=== PATIENT | male | born 1935 | race Hispanic/Latino ===

== ENCOUNTER 2017-05-11 16:46 | Inpatient (IN) | payer MEDICARE ==
[~2017-05-11] VITALS: Ht 175.3 cm; Wt 89.3 kg
[2017-05-11] MEDS ORDERED: LIDOCAINE HCL-MPF 1% 2ML VIAL IVP PRN (18:15)
[2017-05-11] MEDS ORDERED: POTASSIUM CHLORIDE 20MEQ/100ML 100 ML IV PRN (18:15)
[2017-05-11] MEDS ORDERED: POTASSIUM CHLORIDE 10% ELIXIR 20 MEQ/15 ML UDCUP PO PRN (18:15)
[2017-05-11 18:56] LABS: HEMATOCRIT 32.1 % (42-54); MEAN CORPUSCULAR HEMOGLOBIN 30.1 pg (27.0-33.0); MEAN CORPUSCULAR HGB CONC 33.3 g/dL (32.0-36.0); MEAN CORPUSCULAR VOLUME 90.5 fL (79-99); NUCLEATED RED BLOOD CELLS 0.1 % (0.0-0.19); PLATELET COUNT (AUTO) 210 K/uL (130-400); RED BLOOD CELL COUNT(AUTO) 3.55 MIL/uL (4.50-6.20); RED CELL DISTRIBUTION WIDTH 14.1 % (11.0-15.5)
[2017-05-11 19:05] VITALS: BP 156/58
[2017-05-11 19:17] LABS: MAGNESIUM 1.5 mg/dL (1.80-2.40); THYROID STIMULATING HORMONE 0.2 uIU/mL (0.36-3.74)
[2017-05-11 19:22] LABS: B-TYPE NATRIURETIC PEPTIDE 994 pg/mL (0-100)
[2017-05-11] MEDS: FUROSEMIDE 10 MG/ML 4ML VIAL IV SCH (19:27)
[2017-05-11 19:42] LABS: BASOPHILS % (MANUAL) 1 % (0-2); LYMPHOCYTES % (MANUAL) 17 % (22-44); MONOCYTES % (MANUAL) 6 % (2-9); PLATELET MORPHOLOGY COMMENT ADEQUATE; REACTIVE LYMPHOCYTES 3 % (0-0); SEGMENTED NEUTROPHILS % 73 % (40-70)
[2017-05-11 20:07] LABS: ALBUMIN 3.2 g/dL (3.5-5.0); BILIRUBIN,TOTAL 1.4 mg/dL (0.2-1.0); CREATININE 1.2 mg/dL (0.5-1.5); MAGNESIUM 1.5 mg/dL (1.80-2.40); POTASSIUM 3.1 mmol/L (3.5-5.1); THYROID STIMULATING HORMONE 0.21 uIU/mL (0.36-3.74); TOTAL PROTEIN, SERUM 6.8 g/dL (6.0-8.3)
[2017-05-11] MEDS: POTASSIUM CHLORIDE 20 MEQ ERTAB PO PRN ×2 (20:31→22:19)
[2017-05-11] MEDS ORDERED: MAGNESIUM 2GM PREMIX 50ML 50 ML IV SCH (21:45)
[2017-05-11] MEDS: NITROGLYCERIN 1GM/1 INCH PACKET TD SCH (22:19)
[2017-05-11] MEDS: GUAIFENESIN-DM 200/20 MG 10 ML PO PRN (22:20)
[2017-05-11 23:39] VITALS: BP 153/54
[2017-05-11 23:43] LABS: CREATINE KINASE MB < 0.5 ng/mL (0.5-3.6); CREATINE KINASE, TOTAL 80 U/L (21-232); MYOGLOBIN 88 ng/mL (10-92); TROPONIN I < 0.04 ng/mL (0.00-0.06)
[2017-05-12] MEDS: POTASSIUM CHLORIDE 20 MEQ ERTAB PO PRN ×5 (00:36→11:07)
[2017-05-12] MEDS ORDERED: AMIO200T2 PO (02:03)
[2017-05-12] MEDS ORDERED: FURO20TA4 PO (02:03)
[2017-05-12] MEDS ORDERED: ROSU10TA35 PO (02:03)
[2017-05-12] MEDS ORDERED: TAMS0.4C32 PO (02:03)
[2017-05-12] MEDS ORDERED: LOSA25TA21 PO (02:03)
[2017-05-12] MEDS ORDERED: METO50TA9 PO (02:03)
[2017-05-12] MEDS ORDERED: ISOS30TA6 PO (02:04)
[2017-05-12 03:45] LABS: HEMATOCRIT 32.3 % (42-54); MEAN CORPUSCULAR HEMOGLOBIN 30.9 pg (27.0-33.0); MEAN CORPUSCULAR HGB CONC 34.3 g/dL (32.0-36.0); MEAN CORPUSCULAR VOLUME 90.3 fL (79-99); PLATELET COUNT (AUTO) 184 K/uL (130-400); RED BLOOD CELL COUNT(AUTO) 3.58 MIL/uL (4.50-6.20); RED CELL DISTRIBUTION WIDTH 14.7 % (11.0-15.5); WHITE BLOOD COUNT (AUTO) 5.6 K/uL (4.8-10.8)
[2017-05-12 03:50] VITALS: BP 140/64
[2017-05-12 04:35] LABS: CARBON DIOXIDE 31 mmol/L (21-32); CHLORIDE 105 mmol/L (101-111); CREATINE KINASE MB 0.7 ng/mL (0.5-3.6); CREATINE KINASE, TOTAL 81 U/L (21-232); CREATININE 1.2 mg/dL (0.5-1.5); GLOMERULAR FILTR. RATE CALC 61 mL/min (>60); GLUCOSE,RANDOM 106 mg/dL (70-105); MYOGLOBIN 81 ng/mL (10-92); POTASSIUM 3.3 mmol/L (3.5-5.1); SODIUM SERUM 142 mmol/L (136-145); TROPONIN I < 0.04 ng/mL (0.00-0.06); UREA NITROGEN, BLOOD 15 mg/dL (7-18)
[2017-05-12] MEDS: FUROSEMIDE 10 MG/ML 4ML VIAL IV SCH (06:43)
[2017-05-12] MEDS: NITROGLYCERIN 1GM/1 INCH PACKET TD SCH (06:43)
[2017-05-12 07:00] VITALS: BP 151/69
[2017-05-12] MEDS ORDERED: INSULIN HUMULIN R 100 UNIT/ML 3ML SQ SCH (07:30)
[2017-05-12] MEDS: ASPIRIN 325MG EC TAB 325 MG TABLET.DR PO SCH (07:49)
[2017-05-12] MEDS: FAMOTIDINE 20MG TAB 20 MG TAB PO SCH (07:49)
[2017-05-12] MEDS ORDERED: LOSARTAN 50 MG TABLET PO SCH (09:30)
[2017-05-12] MEDS: AMIODARONE HCL 200 MG TABLET PO SCH ×2 (09:30→10:30)
[2017-05-12] MEDS ORDERED: METOPROLOL TARTRATE 25 MG TAB PO SCH (09:30)
[2017-05-12] MEDS ORDERED: ISOSORBIDE MONO 30MG TAB SR PO SCH (09:30)
[2017-05-12 10:57] LABS: CREATINE KINASE MB 0.9 ng/mL (0.5-3.6); CREATINE KINASE, TOTAL 74 U/L (21-232); MYOGLOBIN 81 ng/mL (10-92); TROPONIN I < 0.04 ng/mL (0.00-0.06)
[2017-05-12 11:00] VITALS: BP 151/64
[2017-05-12 16:00] VITALS: BP 140/85
[2017-05-12 19:36] VITALS: BP 136/48
[2017-05-12] MEDS: METOPROLOL TARTRATE 25 MG TAB PO SCH (22:57)
[2017-05-12] MEDS: TAMSULOSIN HCL 0.4 MG CAP.ER.24H PO SCH (22:57)
[2017-05-12] MEDS: ATORVASTATIN CALCIUM 20 MG TABLET PO SCH (22:57)
[2017-05-12 23:19] VITALS: BP 143/59
[2017-05-13] VITALS (13 sets, daily range): BP systolic 121–164; BP diastolic 59–85
[2017-05-13 04:11] LABS: CREATININE 1.1 mg/dL (0.5-1.5); POTASSIUM 3.8 mmol/L (3.5-5.1)
[2017-05-13] MEDS: ASPIRIN 325MG EC TAB 325 MG TABLET.DR PO SCH (08:20)
[2017-05-13] MEDS: ISOSORBIDE MONO 30MG TAB SR PO SCH (08:20)
[2017-05-13] MEDS: FUROSEMIDE 40 MG TABLET PO SCH (08:20)
[2017-05-13] MEDS: FAMOTIDINE 20MG TAB 20 MG TAB PO SCH (08:20)
[2017-05-13] MEDS: METOPROLOL TARTRATE 25 MG TAB PO SCH ×2 (08:20→20:49)
[2017-05-13] MEDS: LOSARTAN 50 MG TABLET PO SCH (08:28)
[2017-05-13] MEDS ORDERED: AMIODARONE HCL 200 MG TABLET PO SCH (09:00)
[2017-05-13 11:56] LABS: INR 1.01 (0.85-1.15); PROTHROMBIN TIME 10.6 SEC (9.6-11.6)
[2017-05-13] MEDS ORDERED: BUPIVACAINE/PF 0.25% 30ML VIAL IJ ONE (15:45)
[2017-05-13] MEDS ORDERED: LIDOCAINE HCL 1% MDV 50ML VIAL ONE (15:45)
[2017-05-13] MEDS ORDERED: ISOVUE-300 100 ML VIAL IV ONE (15:45)
[2017-05-13] MEDS ORDERED: VANCOMYCIN 1GM+NS 250ML 500 ML IV ONE (15:45)
[2017-05-13] MEDS ORDERED: MEPERIDINE-PF 50 MG/ML SYG ONE (15:57)
[2017-05-13] MEDS ORDERED: MIDAZOLAM HCL 1 MG/ML 2ML VIAL ONE ×2 (15:57→16:25)
[2017-05-13] MEDS ORDERED: DOXY100T2 PO (17:43)
[2017-05-13] MEDS: GUAIFENESIN-DM 200/20 MG 10 ML PO PRN (20:49)
[2017-05-13] MEDS: TAMSULOSIN HCL 0.4 MG CAP.ER.24H PO SCH (20:49)
[2017-05-13] MEDS: ATORVASTATIN CALCIUM 20 MG TABLET PO SCH (20:49)
[2017-05-14 03:45] VITALS: BP 161/73
[2017-05-14 04:20] LABS: MEAN CORPUSCULAR HEMOGLOBIN 31.4 pg (27.0-33.0); MEAN CORPUSCULAR HGB CONC 34.9 g/dL (32.0-36.0); MEAN CORPUSCULAR VOLUME 89.9 fL (79-99); PLATELET COUNT (AUTO) 228 K/uL (130-400); RED BLOOD CELL COUNT(AUTO) 3.68 MIL/uL (4.50-6.20); RED CELL DISTRIBUTION WIDTH 14.6 % (11.0-15.5); WHITE BLOOD COUNT (AUTO) 7.2 K/uL (4.8-10.8)
[2017-05-14 04:27] LABS: POTASSIUM 3.8 mmol/L (3.5-5.1)
[2017-05-14] MEDS ORDERED: VANCOMYCIN 1GM+NS 250ML 250 ML IV SCH ×2 (06:00)
[2017-05-14] MEDS: POTASSIUM CHLORIDE 20 MEQ ERTAB PO PRN (07:11)
[2017-05-14 07:28] VITALS: BP 150/64
[2017-05-14] MEDS: METOPROLOL TARTRATE 25 MG TAB PO SCH (07:49)
[2017-05-14] MEDS: ISOSORBIDE MONO 30MG TAB SR PO SCH (07:49)
[2017-05-14] MEDS: LOSARTAN 50 MG TABLET PO SCH (07:49)
[2017-05-14] MEDS: FUROSEMIDE 40 MG TABLET PO SCH (07:49)
[2017-05-14] MEDS: FAMOTIDINE 20MG TAB 20 MG TAB PO SCH (07:49)
[2017-05-14] MEDS: ASPIRIN 325MG EC TAB 325 MG TABLET.DR PO SCH (07:49)
[2017-05-14] MEDS: GUAIFENESIN-DM 200/20 MG 10 ML PO PRN (07:56)
[2017-05-14] MEDS ORDERED: SPIRONOLACTONE 25 MG TAB PO SCH (09:00)
== END 2017-05-14 11:25 | disposition home or self-care (01) | DRG 226 ==
LOC: EDH 16:46 → OBSVTOIN 17:20 → 2CH 17:20 → INTOOBSV 17:20
PROVIDERS: ADMIT Internal Medicine; ATTEND Internal Medicine
PROC: 0JH609Z Insertion of Cardiac Resynchronization Defibrillator Pulse Generator into Chest Subcutaneous Tissue and Fascia, Open Approach (ICD-10-PCS; principal; 2017-05-13)
PROC: 02HL3KZ Insertion of Defibrillator Lead into Left Ventricle, Percutaneous Approach (ICD-10-PCS; 2017-05-13)
PROC: 02HK3KZ Insertion of Defibrillator Lead into Right Ventricle, Percutaneous Approach (ICD-10-PCS; 2017-05-13)
PROC: 0JPT0PZ Removal of Cardiac Rhythm Related Device from Trunk Subcutaneous Tissue and Fascia, Open Approach (ICD-10-PCS; 2017-05-13)
DX: I25.5 Ischemic cardiomyopathy (principal); I50.21 Acute systolic (congestive) heart failure; I48.0 Paroxysmal atrial fibrillation; D64.9 Anemia, unspecified; I11.0 Hypertensive heart disease with heart failure; E83.42 Hypomagnesemia; I34.0 Nonrheumatic mitral (valve) insufficiency; I25.10 Atherosclerotic heart disease of native coronary artery without angina pectoris; E78.5 Hyperlipidemia, unspecified; I45.9 Conduction disorder, unspecified; I73.9 Peripheral vascular disease, unspecified; N40.0 Benign prostatic hyperplasia without lower urinary tract symptoms; Z95.1 Presence of aortocoronary bypass graft; Z90.49 Acquired absence of other specified parts of digestive tract; Z88.0 Allergy status to penicillin; Z95.0 Presence of cardiac pacemaker
CPT/HCPCS: 33225; 33249; 36415; 71046; 80048; 80053; 82550; 82553; 82948; 83036; 83735; 83874; 83880; 84439; 84443; 84445; 84481; 84484; 85025; 85027; 85610; 93005; 93306; 99152; 99153; C1769; C1882; C1900; J1940; J2175; J2250; J3370; J3475; J3490; Q9967

== ENCOUNTER → 2018-06-01 | Outpatient (CLI) | payer OTHER ==
[~2018-06-01] MED LIST: DOXY100T2 PO; FURO20TA4 PO; ISOS30TA6 PO; LOSA25TA41 PO; METO50TA9 PO; ROSU10TA27 PO; TAMS0.4C32 PO
== END | disposition home or self-care (01) ==
LOC: RAH 11:58
PROVIDERS: ATTEND Urology
DX: R31.29 Other microscopic hematuria (principal); N32.89 Other specified disorders of bladder
CPT/HCPCS: 76770

== ENCOUNTER → 2018-07-28 | Outpatient (CLI) | payer OTHER ==
[~2018-07-28] MED LIST changes: +IOHEXOL-350 75 ML VIAL IV ONE
== END | disposition home or self-care (01) ==
LOC: RAH 08:42
PROVIDERS: ATTEND Urology
DX: N20.0 Calculus of kidney (principal); N40.0 Benign prostatic hyperplasia without lower urinary tract symptoms; M51.36 Other intervertebral disc degeneration, lumbar region; M25.78 Osteophyte, vertebrae; Z90.49 Acquired absence of other specified parts of digestive tract
CPT/HCPCS: 74178; Q9967

== ENCOUNTER → 2018-08-19 | Outpatient (CLI) | payer OTHER ==
[~2018-08-19] MED LIST changes: -IOHEXOL-350 75 ML VIAL IV ONE
== END | disposition home or self-care (01) ==
LOC: SHCH 09:23
PROVIDERS: ATTEND Internal Medicine Cardiovascular Disease
DX: I11.9 Hypertensive heart disease without heart failure (principal); I08.0 Rheumatic disorders of both mitral and aortic valves
CPT/HCPCS: 93306

== ENCOUNTER → 2018-08-23 | Outpatient (CLI) | payer OTHER | END | disposition home or self-care (01) | LOC: SHCH 09:38 | PROVIDERS: ATTEND Internal Medicine Cardiovascular Disease | DX: I65.23 Occlusion and stenosis of bilateral carotid arteries (principal); I73.9 Peripheral vascular disease, unspecified; I48.2 Chronic atrial fibrillation | CPT/HCPCS: 93880; 93925 ==

== ENCOUNTER 2018-09-21 08:19 | Day surgery (SDC) | payer OTHER ==
[2018-09-17 10:43] VITALS: BP 128/71
[2018-09-17 10:47] LABS: BASOPHILS % (AUTO) 0.6 % (0.0-5.0); EOSINOPHILS % (AUTO) 2.5 % (0.0-8.0); HEMATOCRIT 39.3 % (42-54); LYMPHOCYTES % (AUTO) 38.6 % (21.0-51.0); MEAN CORPUSCULAR HEMOGLOBIN 30.8 pg (27.0-33.0); MEAN CORPUSCULAR HGB CONC 33.8 g/dL (32.0-36.0); MEAN CORPUSCULAR VOLUME 91.1 fL (79-99); MONOCYTES % (AUTO) 10.2 % (3.0-13.0); NEUTROPHILS % (AUTO) 48.1 % (40.0-77.0); PLATELET COUNT (AUTO) 112 K/uL (130-400); RED BLOOD CELL COUNT(AUTO) 4.31 MIL/uL (4.50-6.20); WHITE BLOOD COUNT (AUTO) 4.7 K/uL (4.8-10.8)
[2018-09-17 10:58] LABS: INR 1.23 (0.85-1.15); PARTIAL THROMBOPLASTIN TIME 35.4 SEC (26.3-35.5); PROTHROMBIN TIME 12.9 SEC (9.6-11.6)
[2018-09-17 10:59] LABS: CREATININE 1.1 mg/dL (0.5-1.5); POTASSIUM 4.3 mmol/L (3.5-5.1)
[2018-09-17 11:00] LABS: APPEARANCE,URINE Clear (CLEAR); BILIRUBIN,URINE Negative (NEGATIVE); COLOR,URINE Yellow (YELLOW); GLUCOSE, URINE (UA) Negative (NEGATIVE); KETONES,URINE Negative (NEGATIVE); LEUKOCYTE ESTERASE ,URINE Negative (NEGATIVE); NITRATE,URINE Negative (NEGATIVE); OCCULT BLOOD,URINE Moderate (NEGATIVE); PROTEIN,URINE Negative (NEGATIVE)
[2018-09-17 11:36] LABS: BACTERIA,URINE Rare /HPF (None Seen); RBC,URINE 0-1 /HPF (0-1); SQUAMOUS EPITHELIAL CELL,UR Rare /HPF (0-2); WBC,URINE 0-1 /HPF (0-1)
--- NOTE | 2018-09-20 11:00 | NUR ---
ABNORMAL LABS REPORTED TO SHANE THAKUR PT 12.9, INR 1.23, PLATELET 112. NO FURTHER ORDERS GIVEN, MAY PROCEED WITH PLANNED PROCEDURE.
[~2018-09-21] VITALS: Ht 177.8 cm; Wt 86.4 kg
[2018-09-21] VITALS (26 sets, daily range): BP systolic 122–147; BP diastolic 72–95
[~2018-09-21 08:19] MED LIST changes: +CERTAVITE SENIOR PO; -DOXY100T2 PO; +FINA5TAB41 PO; -LOSA25TA41 PO; +RIVA20TA PO; -ROSU10TA27 PO; +ROSU10TA28 PO
[2018-09-21] MEDS ORDERED: SODIUM CHLORIDE 0.9% 1000ML 1,000 ML IV ONE (09:00)
[2018-09-21] MEDS ORDERED: LIDOCAINE HCL 2% VISCOUS 15 ML UDCUP ONE (09:01)
[2018-09-21] MEDS ORDERED: FENTANYL CITRATE PF 50 MCG/1 ML 2ML VIAL ONE (10:24)
[2018-09-21] MEDS ORDERED: MIDAZOLAM HCL 1 MG/ML 2ML VIAL ONE ×2 (10:26→14:01)
[2018-09-21] MEDS ORDERED: NALOXONE HCL 0.4 MG/1 ML ML ONE (10:27)
[2018-09-21] MEDS ORDERED: FLUMAZENIL 0.1MG/1ML 5ML VIAL IV ONE (10:27)
--- NOTE | 2018-09-21 12:10 | NUR ---
PROCEDURE KRISTINA DR. Funmi SMART, JAMEEL BELTRAN, SPENCER AND MYSELF IN ROOM DAY 16 FOR PROCEDURE. PT AWAKE ALERT ORIENTED X3. STABLE. TIME OUT DONE PRIOR TO SEDATION. FIRST DOSE IV SEDATION STARTED AT 1212, LAST DOSE AT [address] Funmi SMART STARTED WITH PROCEDURE, PROCEDURE ENDED AT 1232 SCOPE OUT. PT TOLERATED WELL. BREATHING EASY AND UNLABORED. MD OUT OF ROOM AT 1233.
[2018-09-21] MEDS ORDERED: IOHEXOL 350 MG/ML 100ML INFUS..BTL IV ONE (13:24)
[2018-09-21] MEDS ORDERED: IOHEXOL-350 50ML VIAL IV ONE (13:24)
[2018-09-21] MEDS ORDERED: SODIUM BICARB 50MEQ 50ML VIAL ONE (13:24)
[2018-09-21] MEDS ORDERED: LIDOCAINE HCL 2% 20ML ONE (13:24)
[2018-09-21] MEDS ORDERED: HEPARIN SODIUM 1000UNIT/ML 10ML VIAL ONE (13:24)
--- NOTE | 2018-09-21 13:25 | NUR ---
TO EMERGENCY VETERINARY ASSISTANT PT TAKEN TO EMERGENCY VETERINARY ASSISTANT VIA BED BY FRANNY ABEL. PT STABLE. AWAKE ALERT ORIENTED 3. NO COMPLAINTS MADE.
[2018-09-21] MEDS ORDERED: NITROGLYCERIN 5 MG/ML 10 ML VIAL IV ONE (13:26)
[2018-09-21] MEDS ORDERED: MEPERIDINE-PF 25 MG/ML SYG ONE (14:01)
[2018-09-21] MEDS ORDERED: SODIUM CHLORIDE 0.9% 10 ML VIAL IVP SCH (15:00)
--- NOTE | 2018-09-21 16:08 | NUR ---
DR. KVNG ROJAS, RN ON PHONE. PER DR. CALDERON, PT WILL BE SEEN IN OFFICE AN OUTPT. PT CAN BE DISCHARGED HOME AND APPT WILL BE MADE. PT CAN EAT. DIAGRAM AND FACE SHEET FAXED TO [facility] AT [phone]
--- NOTE | 2018-09-21 16:10 | NUR ---
REPORT REPORT GIVEN BY FRANNY ERNST. PT LYING IN BED. SITE TO RIGHT GROIN SOFT TO TOUCH. NO BLEEDING, OOZING NOTED TO SITE. [id number] TO PT AND PTS FAMILY ON IMPORTANCE OF NOT LIFTING HEAD UP OFF OF BED AND NOT MOVING RIGHT LEG. ALL VERBALIZED UNDERSTANDING.
--- NOTE | 2018-09-21 16:11 | NUR ---
SHANE SIMMONS ON PHONE. PT TO RESUME [facility]ANNA STARTING TOMORROW. WILL INSTRUCT PT FAMILY.
--- NOTE | 2018-09-21 18:50 | NUR ---
DISCHARGE ORAL AND WRITTEN DISCHARGE INSTRUCTIONS GIVEN TO PT AND PTS DAUGHTER. BOTH VERBALIZED UNDERSTANDING. SITE TO RIGHT SOFT TOUCH. PT AMBULATED WITHOUT DIFFICULTY.
== END 2018-09-21 19:15 | disposition home or self-care (01) ==
LOC: DAH 08:19
PROVIDERS: ATTEND Internal Medicine Cardiovascular Disease
DX: I25.10 Atherosclerotic heart disease of native coronary artery without angina pectoris (principal); I48.2 Chronic atrial fibrillation; E78.5 Hyperlipidemia, unspecified; I10 Essential (primary) hypertension; N40.0 Benign prostatic hyperplasia without lower urinary tract symptoms; I73.9 Peripheral vascular disease, unspecified; Z88.0 Allergy status to penicillin; Z79.899 Other long term (current) drug therapy; Z79.01 Long term (current) use of anticoagulants; Z95.5 Presence of coronary angioplasty implant and graft; Z95.0 Presence of cardiac pacemaker; Z87.891 Personal history of nicotine dependence
CPT/HCPCS: 36415; 71045; 80048; 81001; 81003; 85025; 85610; 85730; 93005; 93313; 93461; A4606; C1760; C1894 ×2; J1644; J2175; J2250; J3010; J3490 ×3; J7030; Q9965 ×2; Q9967 ×2; 99152; 99153; 99156; 99157; J2310

== ENCOUNTER → 2018-11-12 | Outpatient (CLI) | payer OTHER ==
[~2018-11-12] VITALS: Ht 175.3 cm; Wt 88.5 kg
[~2018-11-12] MED LIST changes: +CLINDAMYCIN 900 MG/D5% WATER 50 ML IV SCH
[2018-11-12 14:08] VITALS: BP 128/70
[2018-11-12 14:10] LABS: BASOPHILS % (AUTO) 0.5 % (0.0-5.0); EOSINOPHILS % (AUTO) 1.7 % (0.0-8.0); HEMATOCRIT 38.6 % (42-54); LYMPHOCYTES % (AUTO) 36.6 % (21.0-51.0); MEAN CORPUSCULAR HEMOGLOBIN 30.4 pg (27.0-33.0); MEAN CORPUSCULAR HGB CONC 33.1 g/dL (32.0-36.0); MEAN CORPUSCULAR VOLUME 91.7 fL (79-99); MONOCYTES % (AUTO) 9.1 % (3.0-13.0); NEUTROPHILS % (AUTO) 52.1 % (40.0-77.0); NUCLEATED RED BLOOD CELLS 0.1 % (0.0-0.19); PLATELET COUNT (AUTO) 124 K/uL (130-400); RED BLOOD CELL COUNT(AUTO) 4.21 MIL/uL (4.50-6.20); RED CELL DISTRIBUTION WIDTH 14.9 % (11.0-15.5); WHITE BLOOD COUNT (AUTO) 6.2 K/uL (4.8-10.8)
[2018-11-12 14:18] LABS: HEMOGLOBIN A1C 6.3 % (4.0-6.0)
[2018-11-12 14:22] LABS: INR 1.05 (0.85-1.15); PARTIAL THROMBOPLASTIN TIME 28.7 SEC (26.3-35.5)
[2018-11-12 14:25] LABS: ALBUMIN 3.7 g/dL (3.5-5.0); BILIRUBIN,TOTAL 1.8 mg/dL (0.2-1.0); CREATININE 1.3 mg/dL (0.5-1.5); POTASSIUM 4.3 mmol/L (3.5-5.1)
== END | disposition home or self-care (01) ==
LOC: DAH 10:00 → EDSTATUS 11-15 09:00
PROVIDERS: ATTEND Thoracic Surgery (Cardiothoracic Vascular Surgery)
DX: Z01.818 Encounter for other preprocedural examination (principal); I34.0 Nonrheumatic mitral (valve) insufficiency; M47.815 Spondylosis without myelopathy or radiculopathy, thoracolumbar region
CPT/HCPCS: 36415; 71046; 80053; 80061; 83036; 85025; 85610; 85730; 86850; 86900; 86901; 93005; 94010

== ENCOUNTER → 2019-02-03 | Outpatient (CLI) | payer OTHER ==
[~2019-02-03] MED LIST changes: +AMIO200T44 PO; -CLINDAMYCIN 900 MG/D5% WATER 50 ML IV SCH; -FURO20TA4 PO; +FURO20TA6 PO; -ISOS30TA6 PO
== END | disposition home or self-care (01) ==
LOC: SHCH 12:47
PROVIDERS: ATTEND Internal Medicine Cardiovascular Disease
DX: I35.8 Other nonrheumatic aortic valve disorders (principal); I51.7 Cardiomegaly; Z95.1 Presence of aortocoronary bypass graft; Z95.2 Presence of prosthetic heart valve
CPT/HCPCS: 93306

== ENCOUNTER → 2019-06-07 | Outpatient (CLI) | payer OTHER | END | disposition home or self-care (01) | LOC: RAH 09:52 | PROVIDERS: ATTEND Urology | DX: N20.0 Calculus of kidney (principal); N28.1 Cyst of kidney, acquired; N40.0 Benign prostatic hyperplasia without lower urinary tract symptoms; R31.9 Hematuria, unspecified | CPT/HCPCS: 76770 ==

== ENCOUNTER → 2019-07-05 | Outpatient (CLI) | payer OTHER | END | disposition home or self-care (01) | LOC: SHCH 10:01 | PROVIDERS: ATTEND Internal Medicine Cardiovascular Disease | DX: R60.9 Edema, unspecified (principal); I73.9 Peripheral vascular disease, unspecified | CPT/HCPCS: 93925; 93970 ==

== ENCOUNTER → 2019-07-26 | Outpatient (CLI) | payer OTHER | END | disposition home or self-care (01) | LOC: LAB 10:09 | PROVIDERS: ATTEND Thoracic Surgery (Cardiothoracic Vascular Surgery) | DX: I72.4 Aneurysm of artery of lower extremity (principal) | CPT/HCPCS: 36415; 82565; 84520 ==

== ENCOUNTER → 2019-08-31 | Outpatient (CLI) | payer OTHER ==
[2019-08-31 10:09] LABS: CREATININE 0.9 mg/dL (0.5-1.5)
== END | disposition home or self-care (01) ==
LOC: LAB 09:12
PROVIDERS: ATTEND Thoracic Surgery (Cardiothoracic Vascular Surgery)
DX: I72.4 Aneurysm of artery of lower extremity (principal)
CPT/HCPCS: 36415; 82565; 84520

== ENCOUNTER → 2019-09-06 | Outpatient (CLI) | payer OTHER | END | disposition home or self-care (01) | LOC: RAH 09:10 | PROVIDERS: ATTEND Urology | DX: N20.0 Calculus of kidney (principal); J84.10 Pulmonary fibrosis, unspecified; J98.11 Atelectasis; I25.10 Atherosclerotic heart disease of native coronary artery without angina pectoris; K57.90 Diverticulosis of intestine, part unspecified, without perforation or abscess without bleeding; K40.20 Bilateral inguinal hernia, without obstruction or gangrene, not specified as recurrent | CPT/HCPCS: 74176 ==

== ENCOUNTER → 2019-09-14 | Outpatient (CLI) | payer OTHER ==
[~2019-09-14] MED LIST changes: +IOHEXOL 350 MG/ML 100ML INFUS..BTL IV ONE
== END | disposition home or self-care (01) ==
LOC: RAH 08:51
PROVIDERS: ATTEND Thoracic Surgery (Cardiothoracic Vascular Surgery)
DX: I70.201 Unspecified atherosclerosis of native arteries of extremities, right leg (principal); I70.0 Atherosclerosis of aorta; I72.4 Aneurysm of artery of lower extremity; N40.0 Benign prostatic hyperplasia without lower urinary tract symptoms
CPT/HCPCS: 73706; Q9967

== ENCOUNTER → 2020-11-19 | Outpatient (CLI) | payer OTHER ==
[~2020-11-19] MED LIST changes: -IOHEXOL 350 MG/ML 100ML INFUS..BTL IV ONE
== END | disposition home or self-care (01) ==
LOC: SHCH 13:49
PROVIDERS: ATTEND Internal Medicine Cardiovascular Disease
DX: I51.7 Cardiomegaly (principal); I25.5 Ischemic cardiomyopathy; I25.10 Atherosclerotic heart disease of native coronary artery without angina pectoris; E78.5 Hyperlipidemia, unspecified; F17.210 Nicotine dependence, cigarettes, uncomplicated
CPT/HCPCS: 93306; 93356

== ENCOUNTER → 2020-11-20 | Outpatient (CLI) | payer OTHER ==
[~2020-11-20] VITALS: Ht 175.3 cm; Wt 82.1 kg
[~2020-11-20] MED LIST changes: +REGADENOSON 0.4 MG/5 ML PF SYG IVP SCH
== END | disposition home or self-care (01) ==
LOC: SHCH 07:58
PROVIDERS: ATTEND Internal Medicine Cardiovascular Disease
DX: I25.10 Atherosclerotic heart disease of native coronary artery without angina pectoris (principal); I51.7 Cardiomegaly; Z98.61 Coronary angioplasty status
CPT/HCPCS: 78452; 93017; 96374; A9500 ×2; J2785

== ENCOUNTER 2022-02-16 22:26 | Emergency (ER) | payer MEDICARE ==
[~2022-02-16] VITALS: Ht 170.2 cm; Wt 79.4 kg
[~2022-02-16 22:26] MED LIST changes: -REGADENOSON 0.4 MG/5 ML PF SYG IVP SCH
[2022-02-17 01:07] VITALS: BP 111/45
== END 2022-02-17 01:13 | disposition home or self-care (01) ==
LOC: EDH 22:26
DX: R13.10 Dysphagia, unspecified (principal); Z71.1 Person with feared health complaint in whom no diagnosis is made; E78.00 Pure hypercholesterolemia, unspecified; F03.90 Unspecified dementia, unspecified severity, without behavioral disturbance, psychotic disturbance, mood disturbance, and anxiety; I10 Essential (primary) hypertension; I25.10 Atherosclerotic heart disease of native coronary artery without angina pectoris; I48.91 Unspecified atrial fibrillation; F32.A Depression, unspecified; Z95.1 Presence of aortocoronary bypass graft; Z86.73 Personal history of transient ischemic attack (TIA), and cerebral infarction without residual deficits; Z88.0 Allergy status to penicillin; Z95.810 Presence of automatic (implantable) cardiac defibrillator
CPT/HCPCS: 71045; 93005